=== PATIENT | female | born 1985 | race Caucasian/White ===

== ENCOUNTER 2023-04-06 10:51 | Outpatient (OUT) | payer OTHER, SELFPAY ==
[2023-04-06 12:20] LABS: Lactate Dehydrogenase 139 U/L (81-234)
[2023-04-07 04:12] LABS: CEA 1.3 ng/mL (0.0-4.7); HCG Tumor Marker <1 mIU/mL (.)
== END 2023-04-06 10:52 | disposition home or self-care (01) ==
LOC: LAB 10:54
PROVIDERS: Visit Provider Obstetrics & Gynecology
DX: R10.2 Pelvic and perineal pain (principal); N83.202 Unspecified ovarian cyst, left side
CPT/HCPCS: 36415; 82105; 82378; 83615; 84702; 86304

== ENCOUNTER 2023-05-20 12:28 | Outpatient (OUT) | payer OTHER, SELFPAY ==
--- NOTE | 2023-05-20 13:12 | XR_ITS ---
The [address] [address] Patient Name: RADHA KNIGHT MRN: [id number] date: 1985 Sex: F Assigned Patient Location: [facility] Current Patient Location: [facility] Accession/Order Number: [id number] Exam Date: 05/20/2023 13:18 Report Date: 05/20/2023 13:36 At the request of: EVIE PALM Procedure: XR chest 2V EXAM: XR chest 2V HISTORY: PRE OP EXAM . Cough for the past month. COMPARISON: None. TECHNIQUE: Upright PA and lateral chest x-ray FINDINGS: The heart is not enlarged and the vasculature is not distended. No acute infiltrate, effusion or pneumothorax is identified. The osseous structures are grossly intact. XR/XR chest 2V IMPRESSION: No acute infiltrate or evidence of cardiac decompensation. Direct comparison with a previous study may be helpful in determining the chronicity of these findings. Electronically authenticated by: ASHWIN LAU Date: 05/20/2023 13:36
== END 2023-05-20 12:29 | disposition home or self-care (01) ==
PROVIDERS: Visit Provider Obstetrics & Gynecology
DX: Z01.810 Encounter for preprocedural cardiovascular examination (principal); N83.292 Other ovarian cyst, left side; R10.2 Pelvic and perineal pain
CPT/HCPCS: 71046

== ENCOUNTER 2023-05-24 06:16 | Day surgery (SDC) | payer OTHER, SELFPAY ==
[2023-05-20 13:03] VITALS: BP 116/83; PULSE 94; RESP 20; TEMP 36.7; O2SAT 97; BMI 42.7
[2023-05-24] VITALS (7 sets, daily range): BP systolic 93–127; BP diastolic 55–84; PULSE 78–95; RESP 16–20; TEMP 35.8–36.2; O2SAT 92–98; BMI 42.6
[2023-05-24 06:34] LABS: Basophils Absolute Auto 0.1 10^3/uL (0.0-0.1); Basophils Percent Auto 0.4 % (0.2-2.0); Eosinophils Absolute Auto 0.2 10^3/uL (0.0-0.7); Eosinophils Percent Auto 1.5 % (0.9-7.0); Hematocrit 39.7 % (36.0-48.0); Hemoglobin 13.9 g/dL (12.0-16.0); Immature Granulocytes Abs Auto 0.06 10^3/uL (0.00-0.03); Immature Granulocytes Pct Auto 0.5 % (0.0-0.5); Lymphocytes Absolute Auto 4.1 10^3/uL (1.2-3.8); Lymphocytes Percent Auto 33.3 % (20.5-60.0); Mean Corpuscular Hemoglobin 31.4 pg (26.7-34.0); Mean Corpuscular Volume 89.6 fL (81.0-99.0); Mean Platelet Volume 8.9 fL (9.5-13.5); Monocytes Absolute Auto 0.6 10^3/uL (0.3-0.8); Monocytes Percent Auto 5.1 % (1.7-12.0); Neutrophils Absolute Auto 7.2 10^3/uL (1.4-6.5); Neutrophils Percent Auto 59.2 % (43.0-75.0); Platelet Count 313 10^3/uL (150-450); Red Blood Count 4.43 10^6/uL (4.20-5.40); Red Cell Distribution Width 12.3 % (11.0-15.0); White Blood Count 12.2 10^3/uL (4.0-11.0)
[2023-05-24] MEDS: LACTATED RINGER'S SOLUTION 1,000 ML 50 ML IV ×2 (06:52→08:22)
--- NOTE | 2023-05-24 08:35 | PM.ONB ---
Brief Operative Note Date of procedure: 05/24/23 Pre-op diagnosis: pelvic pain, lt ovarian cyst Post-op diagnosis: same as pre-op Procedure: NAME OF PROCEDURE: [diagnostic laparoscopy ] PROCEDURE: The patient was taken back to the Operating Room where she was placed in dorsal lithotomy position after given general anesthesia. The patient was prepped and draped in normal sterile fashion. A sponge stick was placed into the patient's vagina. Attention was turned to the patient's abdomen, where a small umbilical incision was made. The fascia was tented using Daren clamps and the fascia was entered sharply. Confirmation of intraabdominal placement of the 10 mm port was confirmed under direct visualization using a laparoscope. The patient's abdomen was then insufflated using CO2 gas with approximately 4 liters. A second port was placed left laterally, this was done under direct visualization with a 5 mm port. Survey of the patient's abdomen demonstrated normal liver and gallbladder. absent uterus, left and right tubes and rt ovary lt large ovarian cyst, lt ovarian cystotomy performed bluntly no evidence of any pelvic disease was seen, normal appearing pelvic cavity. All instruments were removed from the patient's abdomen. The patient's abdomen was deinsufflated of CO2 gas. The patient tolerated the procedure well. Sponge stick was removed from the patient's vagina. The patient's infraumbilical fascia was closed using #0 Vicryl on a GI needle. The patient's skin was closed laterally and infraumbilically using 4-0 Vicryl. The patient tolerated the procedure well. Sponge, lap and needle counts were correct x 2. The patient was taken to Recovery Room in stable condition.Clips from prior surgery noted adhered to bladder, the clips were grasped and gently removed. significant bowel adhesions to lt ovary and anterior abdominal wall Anesthesia: OLGA Surgeon: Darrius Dillon [employer] Mill[employer]: Diann Klein Estimated blood loss (mL): 5 Pathology: none sent Condition: stable Disposition: PACU
== END 2023-05-24 09:54 | disposition home or self-care (01) ==
PROVIDERS: Visit Provider Obstetrics & Gynecology
PROC: (CPT 840; principal; 2023-05-24 07:30)
DX: R10.2 Pelvic and perineal pain (principal); N83.202 Unspecified ovarian cyst, left side; Z90.710 Acquired absence of both cervix and uterus; Z98.51 Tubal ligation status
CPT/HCPCS: 49322; 36415; 85025; J1170; J2704